=== PATIENT | male | born 1960 | race Caucasian/White ===

== ENCOUNTER 2020-01-29 13:07 | Outpatient (CLI) | payer BC ==
--- NOTE | 2020-01-29 13:21 | RAD ---
XR Chest Pa Lat STANDARD HISTORY: Dyspnea. Chest pain and cough COMPARISON: 01/08/2020 FINDINGS: The heart size is normal. The lungs are well expanded without focal areas of consolidation, pneumothorax or pleural effusions. There is incomplete visualization of hardware in the lower cervical spine IMPRESSION: No radiographic evidence of acute cardiopulmonary process.
== END 2020-01-29 13:08 | disposition home or self-care (01) ==
LOC: BICRAD 13:07
PROVIDERS: ATTEND Internal Medicine Pulmonary Disease
DX: R06.00 Dyspnea, unspecified (principal)
CPT/HCPCS: 71046